=== PATIENT | female | born 1945 ===

== ENCOUNTER 2020-07-30 12:51 | Emergency (ER) | payer MEDICARE ==
[~2020-07-30] VITALS: Ht 157.5 cm; Wt 130.0 kg
[2020-07-30 13:56] LABS: BASOPHILS % (AUTO) 0.1 % (0-1); EOSINOPHILS % (AUTO) 0 % (0-6); HEMATOCRIT 36.7 % (35.0-45.0); HEMOGLOBIN 12.5 g/dl (12.0-16.0); LYMPHOCYTES # (AUTO) 0.9 X10'3 (1.1-4.8); LYMPHOCYTES % (AUTO) 13.7 % (21-51); MEAN CORPUSCULAR HGB CONC 34.2 g/dL (33.0-36.5); MEAN CORPUSCULAR VOLUME 90.7 FL (78-98); MEAN PLATELET VOLUME 8.9 FL (7.4-10.4); MONOCYTES # (AUTO) 1.1 X10'3 (0-0.9); NEUTROPHILS # (AUTO) 4.3 X10'3 (1.8-7.7); NEUTROPHILS % (AUTO) 69.2 % (42-75); PLATELET COUNT 143 X10'3 (140-440); RED BLOOD COUNT 4.05 X10'6 (4.20-5.60); RED CELL DISTRIBUTION WIDTH 12.9 % (11.5-14.5); WHITE BLOOD COUNT 6.2 X10'3 (4.5-11.0)
[2020-07-30 14:07] LABS: ALANINE AMINOTRANSFERASE 65 U/L (12-78); ALBUMIN 3.1 G/DL (3.4-5.0); ALBUMIN/GLOBULIN RATIO 0.6 (1.1-1.5); ALKALINE PHOSPHATASE 56 IU/L (46-116); ANION GAP 10 (8-16); ASPARTATE AMINO TRANSFERASE 63 U/L (10-37); BILIRUBIN,TOTAL 0.6 MG/DL (0.1-1.0); BLOOD UREA NITROGEN 17 MG/DL (7-18); BUN/CREATININE RATIO 13.5 (6.6-38.0); CALCIUM 8.6 MG/DL (8.5-10.1); CHLORIDE 103 MMOL/L (99-107); CREATININE 1.26 MG/DL (0.40-0.90); GLUCOSE 121 MG/DL (70-104); POTASSIUM 3.9 MMOL/L (3.5-5.1); SODIUM 138 MMOL/L (135-145); TOTAL CARBON DIOXIDE 25.1 MMOL/L (24-32); TOTAL PROTEIN 8.5 G/DL (6.4-8.2); eGFR 42 ML/MIN
[2020-07-30] MEDS ORDERED: dexamethasone 4mg tablet PO ONE (14:10)
[2020-07-30] MEDS ORDERED: DEXAMETHASONE 6 MG TABLET PO ONE (14:10)
[2020-07-30 14:21] LABS: TOTAL CELLS COUNTED 100
[2020-07-30 14:22] LABS: PLATELET ESTIMATE NORMAL
[2020-07-30 14:46] LABS: C-REACTIVE PROTEIN 4.28 MG/DL (0.0-0.5); LACTATE DEHYDROGENASE 376 U/L (81-234)
[2020-07-30] MEDS ORDERED: BAMLANIVIMAB INJECTION 700 MG in normal saline 250ml IV soln 180 ML IV ONE (15:20)
--- NOTE | 2020-07-30 16:17 | NUR ---
Bamlanivimab initiated at 1614. 20 gauge left forearmm patent. Son Oj present to translate and instructed to have patient verbalize any discomfort if felt. RN monitoring patient closely.
--- NOTE | 2020-07-30 16:22 | NUR ---
Son Oj confirms no home medications, no allergies.
[2020-07-30] MEDS ORDERED: acetaminophen 325mg tablet PO ONE (16:25)
--- NOTE | 2020-07-30 16:27 | NUR ---
Son instucted to notify RN of any sign of distress from patient and verbalizes understanding.
--- NOTE | 2020-07-30 17:16 | NUR ---
Patient's IV infusion complete. She denies any symptoms at this time.
[2020-07-30] MEDS ORDERED: normal saline 1000ml 1,000 ML IV ONE (18:10)
[2020-07-30 18:38] LABS: CLARITY,URINE SLIGHTLY CLOUDY (Clear); COLOR,URINE AMBER (Yellow); GLUCOSE, URINE NEGATIVE (Neg); KETONES,URINE TRACE mg/dl (Neg); LEUKOCYTE ESTERASE ,URINE SMALL (Neg); NITRITES, URINE NEGATIVE (Neg); OCCULT BLOOD,URINE TRACE-INTACT (Neg); PROTEIN,URINE >=300 mg/dl (Neg)
[2020-07-30 19:01] LABS: UA COLLECTION TYPE VOIDED
[2020-07-30 19:05] LABS: FINE GRANULAR CAST 0-3 /LPF (NEGATIVE); HYALINE CASTS 0-3 /LPF (NEGATIVE)
[2020-07-30 19:06] LABS: AMORPHOUS URATES 2+; MUCUS STRANDS MODERATE /LPF (Neg); RBC,URINE 0-2 /HPF (0-2); SQUAMOUS EPITHELIAL CELL,UR MODERATE /LPF (FEW); WBC,URINE 0-4 /HPF (0-4)
[2020-07-30 19:07] LABS: BACTERIA,URINE 1+ /HPF (Neg)
[2020-07-30 19:25] VITALS: BP 112/46
== END 2020-07-30 19:27 | disposition home or self-care (01) ==
LOC: ER 12:52
DX: U07.1 COVID-19 (principal); J12.89 Other viral pneumonia
CPT/HCPCS: 36415; 71045; 80053; 81001; 83615; 83880; 84145; 85007; 85025; 86140; 87088; 87635; 96360; 99285; C9803; J7030; J7050; M0239; 96361; 96365; J8540